=== PATIENT | female | born 1980 | race Caucasian/White ===

== ENCOUNTER 2019-02-18 19:31 | Emergency (ER) | payer MEDICAID ==
[~2019-02-18] VITALS: Ht 152.4 cm; Wt 59.0 kg
[2019-02-18] MEDS ORDERED: HYDROCODONE/ACETAMINOPHEN 5/325MG TABLET PO ONE (23:15)
[2019-02-19 02:59] VITALS: BP 104/47
== END 2019-02-19 05:10 | disposition home or self-care (01) ==
LOC: ER 23:50
DX: S09.8XXA Other specified injuries of head, initial encounter (principal); Z98.890 Other specified postprocedural states; W22.8XXA Striking against or struck by other objects, initial encounter; Y93.89 Activity, other specified; Y92.018 Other place in single-family (private) house as the place of occurrence of the external cause
CPT/HCPCS: 70486; 81025; 99284